=== PATIENT | male | born 1965 | race Caucasian/White ===

== ENCOUNTER 2016-11-20 11:33 | Emergency (ER) | payer OTHER ==
[~2016-11-20] VITALS: Ht 177.8 cm; Wt 98.5 kg
[~2016-11-20 11:33] MED LIST: HYDR-3498 PO; IBUP800T25; OFLO5DRO46 BOTH EYES; OFLO5DRO46 LEFT EYE
[2016-11-20 11:35] VITALS: Ht 177.8 cm; Wt 98.5 kg
[2016-11-20] MEDS ORDERED: DIPHTH/TET/ACEL PERTUSS (ADULT) 0.5 ML VIAL IM* ONE (13:30)
--- NOTE | 2016-11-20 14:01 | RADRPT ---
PROCEDURE: XR Foot 3 Views. CLINICAL INDICATION: Left foot pain and trauma, stepped on nail. TECHNIQUE: AP, oblique and lateral views of the left foot were obtained. The images were reviewed on a PACS workstation. COMPARISON: None. FINDINGS: The osseous structures are intact. No destructive bony lesions are identified. Interosseous spaces are normal. Soft tissues surrounding the foot appear unremarkable. IMPRESSION: No visualized traumatic injury. If there is high clinical suspicion for traumatic injury, further evaluation with CT should be consi dered. No visualized radiopaque foreign body. Please note that certain materials such as wood are radioluc ent on x-ray. If there is clinical suspicion for foreign body, further characterization with CT shiraz uld should be considered. RPTAT: AA .Christian Cowart MD, Date Time Electronically viewed and signed by .Christian Cowart MD, on 11/20/2016 14:01 .P/
[2016-11-20] MEDS ORDERED: CIPR500T4 PO (14:13)
--- NOTE | 2016-11-20 14:26 | ERD ---
ER Documentation Chief Complaint Date/Time DATE: 11/20/16 TIME: 14:24 Chief Complaint LEFT FOOT PUNCTURE WOUND BY EFRAÍN NAIL HPI Patient is a 51-year-old male with no past medical history who presents to the ED with puncture wound on his left foot after he stepped on a efraín nail with wearing a flip-flop. Denies fever or chills. Denies vomiting or diarrhea. Unsure of his last tetanus shot. States that it bled at the time but no bleeding since. He is able to ambulate on his foot. Denies numbness or tingling. Denies shortness of breath. No other complaints. ROS All systems reviewed and are negative except as per history of present illness. Medications Home Meds Active Scripts Ciprofloxacin Hcl* (Ciprofloxacin Hcl*) 500 Mg Tablet, 500 MG PO BID for 10 Days , TAB Prov:LIA ROSENTHAL PA-C 11/20/16 Ofloxacin* (Ocuflox*) 0.3%-5 Ml Ophth Drops, 1 DROP BOTH EYES QID for 5 Days, # 1 BOTTLE Prov:TICO FLOWER PA-C 03/15/16 Hydrocodone Bit-Acetaminophen* ([place]*) 5-325 Mg Tab, 1 TAB PO Q6 Y for PAIN, # 7 TAB Prov:MARY JO MORALEZ PA-C 11/06/15 Hydrocodone Bit-Acetaminophen* ([place]*) 5-325 Mg Tab, 1 TAB PO Q6 Y for PAIN, # 7 TAB Prov:MYAH CORREIA PA-C 06/30/15 Ofloxacin* (Ocuflox*) 0.3%-5 Ml Ophth Drops, 1 DROP LEFT EYE QID, #1 BOTTLE Prov:MYAH CORREIA PA-C 06/30/15 Reported Medications Ibuprofen* (Motrin*) 800 Mg Tab, DAILY 04/21/12 Allergies Allergies: Uncoded Allergies: CACTUS (Allergy, Severe, ORBITAL EDEMA, 04/21/12) PMhx/Soc History of Surgery: Yes (R KNEE, vein scraping, R shoulder scope. ) Anesthesia Reaction: No Hx Neurological Disorder: No Hx Respiratory Disorders: No Hx Cardiac Disorders: No Hx Psychiatric Problems: No Hx Miscellaneous Medical Probl: No Hx Alcohol Use: Yes (3 glasses of wine/wk) Hx Substance Use: No Hx Tobacco Use: No Smoking Status: Never smoker FmHx Family History: No coronary disease, No diabetes, No other Physical Exam Vitals Vital Signs Date Time Temp Pulse Resp B/P Pulse Ox O2 Delivery O2 Flow Rate FiO2 11/20/16 11:35 98.5 88 18 162/78 98 Physical Exam GENERAL: Well-developed, well-nourished male. Appears in no acute distress. HEAD: Normocephalic, atraumatic. EYES: Pupils are equally reactive bilaterally. EOMs grossly intact. No conjunctival erythema. ENT: Moist mucous membranes. No uvula deviation. No kissing tonsils. No exudates. NECK: Supple. No lymphadenopathy or thyromegaly. No meningismus. negative kernig. negative brudinski. LUNG: Clear to auscultation bilaterally. No rhonchi, wheezing, rales or coarse breath sounds. HEART: Regular rate and rhythm. No murmurs, rubs or gallops. Extremities: Equal pulses bilaterally. No peripheral clubbing, cyanosis or edema. No unilateral leg swelling. small puncture area on bottom of left foot. Sensation intact bilaterally. Negative Homans sign. No step-offs or deformities. No signs of foreign body. NEUROLOGIC: Alert and oriented. Moving all four extremities. 5/5 strength in all extremities. Normal speech. Steady gait. SKIN: Normal color. Warm and dry. No rashes or lesions. Capillary refill < 2 seconds Results 24 hrs Current Medications Medications (Trade) Dose Ordered Sig/Jina Route PRN Reason Start Time Stop Time Status Last Admin Dose Admin Diphtheria/ Tetanus/Acell Pertussis (Adacel) 0.5 ml ONCE ONCE IM* 11/20/16 13:30 11/20/16 13:31 DC 11/20/16 13:25 Procedures/MDM ER COURSE: I kept the patient and/or family informed of laboratory and diagnostic imaging results throughout the emergency room course. IMAGING STUDIES [place] [id number] Radiology Main Line: [phone] DIAGNOSTIC IMAGING REPORT Patient: LANCE OLIVARES : 1965 Age: 51 Sex: M MR #: [id number] DOS: 11/20/16 1301 Ordering MD: LIA ROSENTHAL PA-C Location: [facility] Room/Bed: PROCEDURE: XR Foot 3 Views. CLINICAL INDICATION: Left foot pain and trauma, stepped on nail. TECHNIQUE: AP, oblique and lateral views of the left foot were obtained. The images were reviewed on a PACS workstation. COMPARISON: None. FINDINGS: The osseous structures are intact. No destructive bony lesions are identified. Interosseous spaces are normal. Soft tissues surrounding the foot appear unremarkable. IMPRESSION: No visualized traumatic injury. If there is high clinical suspicion for traumatic injury, further evaluation with CT should be considered. No visualized radiopaque foreign body. Please note that certain materials such as wood are radiolucent on x-ray. If there is clinical suspicion for foreign body, further characterization with CT should should be considered. RPTAT: AA .Christian Cowart MD, MD Date Time Electronically viewed and signed by .Christian Cowart MD, MD on 11/20/2016 14:01 .P/ CC: LIA ROSENTHAL PA-C PROCEDURES Tetanus. Tolerated well with no adverse reaction. Wound care. MEDICAL DECISION MAKING: This is a 51-year-old male who presents with puncture wound to his left foot. Vital signs were reviewed. Patient is afebrile. Patient is not hypoxic. Patient is nontoxic appearing. Patient has a puncture wound as caused by a nail. Patient did not receive the last tetanus in the last year and was unsure of the date. Tetanus shot was given here. X-rays of by radiologist was unremarkable for foreign body. Low suspicion for necrotizing fasciitis, SJS, toxic epidermal necrolysis, [place], erythema multiforme, gangrene, scarlet fever, meningococcemia, sepsis, anaphylaxis, sepsis, deep space infection, or foreign body. Low suspicion for dislocation, fracture, septic joint, compartment syndrome, osteomyelitis, cellulitis, avascular necrosis, neurological injury, vascular injury, tendon laceration. DISCHARGE: At this time, patient is stable for discharge and outpatient management with no new complaints during the ER course. Patient was sent home with ciprofloxacin and a note for work. Patient will be discharged home with instructions to recheck for new or worsening symptoms such as fever, nausea, weakness, LOC and to follow up with primary care in the next 1-2 days. Patient was advised to return to the ER for any new or worsening symptoms. Plan was discussed and patient and/or family understands and agrees. Home instructions were given. Departure Diagnosis: Primary Impression: Puncture wound Condition: Stable Patient Instructions: Puncture Wound, Foot Referrals: [facility] YOU HAVE RECEIVED A MEDICAL SCREENING EXAM AND THE RESULTS INDICATE THAT YOU DO NOT HAVE A CONDITION THAT REQUIRES URGENT TREATMENT IN THE EMERGENCY DEPARTMENT. FURTHER EVALUATION AND TREATMENT OF YOUR CONDITION CAN WAIT UNTIL YOU ARE SEEN IN YOUR DOCTORS OFFICE WITHIN THE NEXT 1-2 DAYS. IT IS YOUR RESPONSIBILITY TO MAKE AN APPOINTMENT FOR FOLOW-UP CARE. IF YOU HAVE A PRIMARY DOCTOR --you should call your primary doctor and schedule an appointment IF YOU DO NOT HAVE A PRIMARY DOCTOR YOU CAN CALL OUR PHYSICIAN REFERRAL HOTLINE AT IF YOU CAN NOT AFFORD TO SEE A PHYSICIAN YOU CAN CHOSE FROM THE FOLLOWING [facility] [address] [facility]. [facility] [address] [facility] [facility] [address] [facility] [address] [facility] [address] [facility] [address] [facility]. [facility]. [address] Additional Instructions: Call your primary care doctor TOMORROW for an appointment during the next 1-2 days.See the doctor sooner or return here if your condition worsens before your appointment time. LIA ROSENTHAL PA-C Nov 20, 2016 14:26
== END 2016-11-20 14:44 | disposition home or self-care (01) ==
LOC: FTE 11:33
DX: S91.332A Puncture wound without foreign body, left foot, initial encounter (principal); W45.0XXA Nail entering through skin, initial encounter; Y92.9 Unspecified place or not applicable; Z23 Encounter for immunization
CPT/HCPCS: 90471; 90715

== ENCOUNTER 2016-11-22 13:32 | Emergency (ER) | payer OTHER ==
[~2016-11-22] VITALS: Wt 86.4 kg
[~2016-11-22 13:32] MED LIST changes: +CIPR500T4 PO
[2016-11-22] MEDS ORDERED: SULF1TAB31 PO (14:00)
--- NOTE | 2016-11-22 14:05 | ERD ---
ER Documentation Chief Complaint Date/Time DATE: 11/22/16 TIME: 14:01 Chief Complaint wound check HPI This 51-year-old male presents the emergency department today for a wound check of an injury he sustained 2 days ago after stepping on a nail. States that he had some increased pain and some tingling in his foot. Denies any fevers or chills. ROS All systems reviewed and are negative except as per history of present illness. Medications Home Meds Active Scripts Sulfamethoxazole/Trimethoprim* (Bactrim Ds* Tablet) 1 Each Tablet, 1 TAB PO BID for 7 Days, #14 TAB Prov:ASTON RUBI PA-C 11/22/16 Ciprofloxacin Hcl* (Ciprofloxacin Hcl*) 500 Mg Tablet, 500 MG PO BID for 10 Days , TAB Prov:LIA ROSENTHAL PA-C 11/20/16 Ofloxacin* (Ocuflox*) 0.3%-5 Ml Ophth Drops, 1 DROP BOTH EYES QID for 5 Days, # 1 BOTTLE Prov:TICO FLOWER PA-C 03/15/16 Hydrocodone Bit-Acetaminophen* ([place]*) 5-325 Mg Tab, 1 TAB PO Q6 Y for PAIN, # 7 TAB Prov:MARY JO MORALEZ PA-C 11/06/15 Hydrocodone Bit-Acetaminophen* ([place]*) 5-325 Mg Tab, 1 TAB PO Q6 Y for PAIN, # 7 TAB Prov:MYAH CORREIA PA-C 06/30/15 Ofloxacin* (Ocuflox*) 0.3%-5 Ml Ophth Drops, 1 DROP LEFT EYE QID, #1 BOTTLE Prov:MYAH CORREIA PA-C 06/30/15 Reported Medications Ibuprofen* (Motrin*) 800 Mg Tab, DAILY 04/21/12 Allergies Allergies: Uncoded Allergies: CACTUS (Allergy, Severe, ORBITAL EDEMA, 04/21/12) PMhx/Soc History of Surgery: Yes (R KNEE, vein scraping, R shoulder scope. ) Anesthesia Reaction: No Hx Neurological Disorder: No Hx Respiratory Disorders: No Hx Cardiac Disorders: No Hx Psychiatric Problems: No Hx Miscellaneous Medical Probl: No Hx Alcohol Use: Yes (3 glasses of wine/wk) Hx Substance Use: No Hx Tobacco Use: No Smoking Status: Never smoker Physical Exam Vitals Vital Signs Date Time Temp Pulse Resp B/P Pulse Ox O2 Delivery O2 Flow Rate FiO2 11/22/16 13:34 98.6 83 20 147/83 99 Physical Exam Const: Sitting in wheelchair, no acute distress Head: Atraumatic Eyes: Normal Conjunctiva ENT: Normal External Ears, Nose and Mouth. Neck: Full range of motion..~ No meningismus. Resp: Clear to auscultation bilaterally Cardio: Regular rate and rhythm, no murmurs Skin: No petechiae or rashes MSK: Left foot with no obvious deformity. No effusion. No ecchymosis. Tenderness to palpation at site of puncture wound. Mild localized erythema. Full active range of motion ankle. Pulses 2+. Distal neurovascularly intact. Neur: Awake and alert Psych: Normal Mood and Affect Procedures/MDM This 51-year-old male who presents to the emergency department today for wound check of a puncture wound that he sustained 2 days ago. Patient was seen here in the emergency department and had a negative x-ray at that time. He was given an updated tetanus shot. He was sent home on Cipro. Today patient presents with increased pain and some mild localized erythema. Do not feel the patient requires IV antibiotics or admission at this time. I have had Dr. Marvin see and evaluate the patient and he feels that the patient would benefit from Bactrim in addition to the Cipro. Patient is afebrile and otherwise well-appearing low suspicion for sepsis, deep space infection, cellulitis, SJS. At this time the patient is stable for discharge and outpatient management. Patient should follow up with their PCP in the next 1-2 days. They may return to the emergency department sooner for any persistent or worsening of symptoms. Patient understood and agreed with the plan. Discussed the patient with Dr. Marvin and he is in agreement with the plan Departure Diagnosis: Primary Impression: Encounter for wound re-check Condition: Fair Patient Instructions: Wound Care Referrals: your PCP Additional Instructions: Call your primary care doctor TOMORROW for an appointment during the next 1-2 days.See the doctor sooner or return here if your condition worsens before your appointment time. Continue taking her Cipro as prescribed Take Bactrim in addition to Cipro Take Tylenol or Motrin for pain Keep wound clean and dry ASTON RUBI PA-C Nov 22, 2016 14:05
== END 2016-11-22 14:37 | disposition home or self-care (01) ==
LOC: FTE 13:32
DX: Z48.01 Encounter for change or removal of surgical wound dressing (principal); L53.9 Erythematous condition, unspecified
CPT/HCPCS: 99283

== ENCOUNTER 2017-12-26 14:33 | Emergency (ER) | END 2017-12-26 16:32 | disposition home or self-care (01) ==